=== PATIENT | female | born 2005 | race Caucasian/White ===

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

== ENCOUNTER → 2023-10-02 09:23 | Outpatient (BNVA) | payer BC, SELFPAY | PROVIDERS: PCP Nurse Practitioner Family; Visit Provider Registered Nurse | DX: G47.19 Other hypersomnia (principal); R53.83 Other fatigue | CPT/HCPCS: 80053; 82607; 84443; 85025 ==

== ENCOUNTER → 2023-11-20 10:25 | Outpatient (BNVA) | payer BC, SELFPAY | PROVIDERS: PCP Nurse Practitioner Family; Visit Provider Registered Nurse | DX: R53.83 Other fatigue | CPT/HCPCS: 85025; 86003; 86038 ==